=== PATIENT | female | born 2000 | race Caucasian/White ===

== ENCOUNTER 2022-07-06 14:51 | Emergency (ER) | payer BC, SELFPAY ==
[2022-07-06 15:19] VITALS: BP 106/69; PULSE 88; RESP 16; TEMP 36.6; O2SAT 98; BMI 23.6
--- NOTE | 2022-07-06 15:34 | ED_ITS ---
HPI - General Adult General Time Seen by Provider: 15:35 Date Seen: 07/06/22 Chief complaint: Nausea/Vomiting Stated complaint: Vomiting Time Seen by Provider: 07/06/22 14:53 Source: patient Mode of arrival: ambulatory Limitations: no limitations History of Present Illness HPI narrative: Patient is a 22-year-old white female at [facility] who reports it was her birthday last night, drank a lot of shots of alcohol. Patient has no abdominal pain, no chest pain shortness of breath, she has been healthy in the past, she runs track at [employer]. She has been unable to keep food or fluid down today without vomiting. No blood in her vomit, no alcohol issues, presents with a friend from [employer]. Related Data Home Medications Medication Instructions Recorded Confirmed No Known Home Medications 07/06/22 07/06/22 Allergies Allergy/AdvReac Type Severity Reaction Status Date / Time Penicillins Allergy Mild Rash Verified 07/06/22 15:24 Review of Systems Status of ROS: Reports: 6 or more systems reviewed and unremarkable except as noted in History and below [facility] Social History Smoking Status: Never smoker Do you use any of these nicotine containing products: None Second hand tobacco smoke exposure: No How often do you have a drink containing alcohol: monthly or less How many standard drinks containing alcohol do you have on a typical day: 10 or more How often do you have six or more drinks on one occasion: Monthly AUDIT-C Alcohol total score: 7 Non-prescribed substance use: denies use Exam Narrative: Exam Narrative: Objective: In general patient is in mild distress slightly pale, vital signs look unremarkable HEENT is unremarkable mouth is clear neck is supple, pulses regular, neurologic grossly nonfocal Const: Vital Signs, click to edit/add: Vital Signs - 24 hr 07/06/22 15:19 07/06/22 15:50 Temperature 97.8 F Pulse Rate [Right Pulse Oximeter] 88 80 Respiratory Rate 16 Blood Pressure [Ri ght Upper Arm] 106/69 125/64 Pulse Oximetry 98 99 Oxygen Delivery Me thod Room Air Room Air Course Vital Signs Vital signs: Initial Vital Signs Temperature 97.8 F 07/06/22 15:19 Temperature Source Temporal Artery Scan 07/06/22 15:19 Pulse Rate 88 07/06/22 15:19 Pulse Rhythm 07/06/22 15:19 Respiratory Rate 16 07/06/22 15:19 Blood Pressure 106/69 07/06/22 15:19 Blood Pressure Mean 81 07/06/22 15:19 Blood Pressure Position Sitting 07/06/22 15:19 Pulse Oximetry 98 07/06/22 15:19 Oxygen Delivery Method 07/06/22 15:19 Vital Signs Temperature 97.8 F 07/06/22 15:19 Pulse Rate 88 07/06/22 15:19 Respiratory Rate 16 07/06/22 15:19 Blood Pressure 106/69 07/06/22 15:19 Pulse Oximetry 98 07/06/22 15:19 Oxygen Delivery Method 07/06/22 15:19 Temperature 97.8 F 07/06/22 15:19 Pulse Rate 80 07/06/22 15:50 Respiratory Rate 16 07/06/22 15:19 Blood Pressure 125/64 07/06/22 15:50 Pulse Oximetry 99 07/06/22 15:50 Oxygen Delivery Method 07/06/22 15:50 Medical Decision Making [facility] Narrative Medical decision making narrative: Patient likely has alcohol poisoning today, with persistent nausea vomiting, and would benefit from IV hydration, antiemetic, fluid. Will give her IV normal saline bolus, Zofran, and then discharged home for rest observation light activity avoid alcohol in the near term. Return if problems or concerns or recurrence Discharge Plan Discharge Clinical Impression: Vomiting Patient Disposition: Home w/ Parent or Adult Condition: Improved Additional Instructions: Rest, fluids, light activity for 48 hours, return if problems or concerns or continued vomiting, usually once the nausea cycles broke with fluid and Zofran the patient will do better. Avoid alcohol near term Activity Level: Light activity Diet Detail: Light diet, rice, applesauce, toast, bananas are often recommended for an upset stomach Prescriptions: No Action No Known Home Medications Stand Alone Forms: [employer] Info Instructions
[2022-07-06 15:50] VITALS: BP 125/64; PULSE 80; O2SAT 99
[2022-07-06] MEDS: ONDANSETRON 2 MG/ML inj 4 MG IVP (15:55)
[2022-07-06] MEDS: 0.9 % SODIUM CHLORIDE 1000 ml 1,000 ML 6000 ML IV (15:55)
== END 2022-07-06 16:36 | disposition home or self-care (01) ==
PROVIDERS: Emergency Provider Family Medicine
DX: R11.2 Nausea with vomiting, unspecified (principal)
CPT/HCPCS: 96374; 99283; J2405; J7030

== ENCOUNTER 2023-11-28 08:46 | Outpatient (CLI) | payer BC, OTHER, SELFPAY ==
--- NOTE | 2023-11-28 09:15 | MR_ITS ---
[facility] [address] [facility] [address] Phone:?[phone] Fax:?[phone] Referring Physician Information: Michael Bull M.D. [address] [facility] [address] Phone:?[phone] Fax:?[phone] Patient:Vivi Beach D.O.B:?2000 Sex:?Female Phone:?[phone] [facility] MRN:?[id number] Exam Date:?11/28/2023 EXAM: MRI of the LEFT KNEE, without contrast CLINICAL: Reported history of patellar dislocation injury. COMPARISONS: None available. TECHNICAL: Multiplanar multisequence MRI of the left knee was obtained. SEDATION: None. CONTRAST: None. FINDINGS: Ligaments: ACL: Intact and unremarkable. PCL: Intact and unremarkable. MCL: There is increased soft tissue edema about the MCL with minimal irregularity/partial tearing seen to involve the proximal superficial MCL on axial series 4 images 20-23. LCL: Intact and unremarkable. Posterolateral corner: Popliteus, biceps femoris, iliotibial band, and the popliteofibular ligament appear intact. Posteromedial corner: Semimembranosus, pes anserine tendons and posterior oblique ligament appear intact. Extensor mechanism: Patellar tendon: Intact, without tendinopathy. Quadriceps tendon: Intact, without tendinopathy. Retinacula: There is increased soft tissue edema about the lateral patellar retinaculum, without evidence of disruption. There is high-grade tearing throughout the medial patellofemoral ligament with complete disruption of the patellar and femoral fibers of the medial patellofemoral ligament. Proximally retracted patellar fibers are seen to extend along the medial patellar facet with irregular and retracted femoral fibers also noted. Fat pads: There is increased edema within Hoffa's fat. Patellofemoral joint: Patella: There is mild heterogeneity of the patellar cartilage. No chondral defects identified. Patella yuri is present with an Insall Salvati ratio measuring 1.57. Trochlea: No significant chondromalacia. Trochlear groove is somewhat shallow. Tibial tubercle to trochlear groove interval measures 10 mm. Medial compartment: Medial meniscus: No evidence of discrete meniscal tear or meniscal displacement. Medial cartilage: No significant chondromalacia. Lateral compartment: Lateral meniscus: No evidence of discrete meniscal tear or meniscal displacement. Lateral cartilage: No significant chondromalacia. Knee joint: Effusion: Large left knee effusion. Intra-articular bodies:?Mildly prominent synovium or linear intra-articular body along the medial femoral condyle measuring approximately 10 mm in craniocaudal dimension as seen on coronal series 7 image 13. Popliteal cyst: None. Bones: There is mild marrow edema involving the peripheral lateral femoral condyle consistent with osseous contusion. No osseous fracture is identified. Anterior dominant knee subcutaneous soft tissue edema is noted. IMPRESSION: 1. Sequelae of transient patellofemoral dislocation injury as above. This includes high-grade sprain injury/tearing throughout the medial patellofemoral ligament including disruption of the femoral and patellar fibers. Osseous contusion involves the peripheral lateral femoral condyle. 2. Mild sprain injury involving the MCL. 3. Large joint effusion. Mildly prominent synovium or linear intra-articular body along the medial femoral condyle measuring approximately 10 mm in size. 4. No evidence of meniscal tear. [facility] Electronically signed on 11/28/2023 1:12:00 PM by Ajith Vee D.O.
== END 2023-11-28 08:47 | disposition home or self-care (01) ==
PROVIDERS: Visit Provider Family Medicine
DX: M25.562 Pain in left knee (principal); S76.111A Strain of right quadriceps muscle, fascia and tendon, initial encounter; S83.411A Sprain of medial collateral ligament of right knee, initial encounter; M25.461 Effusion, right knee; S83.005A Unspecified dislocation of left patella, initial encounter
CPT/HCPCS: 73721